=== PATIENT | male | born 1960 | race Caucasian/White ===

== ENCOUNTER 2017-03-07 11:52 | Emergency (ER) | payer BC, SELFPAY ==
[2017-03-07] MEDS ORDERED: Ketorolac Tromethamine 30 MG/ML VIAL ONE (12:28)
[2017-03-07] MEDS ORDERED: Sodium Chloride 0.9% 1,000 ML ONE (12:28)
[2017-03-07 12:37] LABS: Bacteria/HPF None Seen HPF (None Seen); Bilirubin Small (Negative); Blood, Urine Large (Negative); Clarity Clear (Clear); Glucose, Urine (Dipstick) Negative (Negative); Leukocyte Negative (Negative); Nitrite Negative (Negative); Protein, Urine (Dipstick) 100 mg/dL (Neg-Trace); RBC/HPF GREATER THAN 50-TNTC HPF (0-3); Specific Gravity, Urine 1.034 (1.002-1.036); Urobilinogen 0.2 mg/dL (0.2-1.0); WBC/HPF 0-3 HPF (0-3); pH, Urine 5.5 (5.0-9.0)
[2017-03-07 12:38] LABS: Crystals/HPF RARE CA OXALATE HPF (Negative)
[2017-03-07] MEDS ORDERED: Metoclopramide HCl 10 MG/2 ML VIAL ONE (12:38)
[2017-03-07] MEDS ORDERED: Sodium Chloride 0.9% 100 ML ONE (12:38)
[2017-03-07 12:47] LABS: #Basophils 0.1 thou/uL (0.0-0.2); #Eosinphils 0.1 thou/uL (0.0-0.7); #Lymphocytes 1.1 thou/uL (1.20-3.40); #Monocytes 0.7 thou/uL (0.11-0.59); #Neutrophils 8.5 thou/uL (1.40-6.50); %Basophils 0.6 % (0.0-1.0); %Eosinophils 0.7 % (0.0-10.0); %Lymphocytes 10.1 % (21.0-51.0); %Monocytes 6.5 % (0.0-10.0); %Neutrophils 82.2 % (42.0-75.0); Hemoglobin 17.7 g/dL (14.0-18.0); Mean Corpuscular Hemoglobin 29.8 pg (27.0-31.0); Mean Corpuscular Volume 90.5 fl (80.0-94.0); Mean Platelet Volume 8.9 fL (7.4-10.4); Platelet Count 199 thou/uL (130-400); RBC Distribution Width 11.4 % (11.5-14.5); Red Blood Cell (RBC) Count 5.92 mill/uL (4.70-6.10); White Blood Cell (WBC) Count 10.4 thou/uL (4.8-10.8)
[2017-03-07 13:01] LABS: ALT (SGPT) 27 U/L (8-55); AST (SGOT) 25 U/L (5-34); Albumin 4.3 g/dL (3.5-5.0); Alkaline Phosphatase 99 U/L (40-150); Anion Gap 16 mmol/L (10-20); BUN (Urea Nitrogen) 18 mg/dL (8.4-25.7); Bilirubin, Total 0.8 mg/dL (0.2-1.2); Calc. Creatinine Clearance 0 mL/min (70-130); Calcium 9.3 mg/dL (7.8-10.44); Carbon Dioxide 21 mmol/L (22-29); Chloride 104 mmol/L (98-107); Estimated GFR-MDRD 57; Globulin 2.9 g/dL (2.4-3.5); Glucose 106 mg/dL (70-105); Potassium 4.1 mmol/L (3.5-5.1); Protein, Total 7.2 g/dL (6.0-8.3); Sodium 137 mmol/L (136-145)
--- NOTE | 2017-03-07 13:56 | CT ---
CT ABDOMEN AND PELVIS WITHOUT CONTRAST: Multiple axial tomograms obtained through the abdomen and pelvis without IV enhancement. HISTORY: Left flank pain. FINDINGS: Liver, spleen, and pancreas unremarkable. Adrenal glands unremarkable. Mild left hydronephrosis. There is a tiny calculus in the distal left ureter measuring in the 2-3 mm range. Right urinary tract unremarkable. Bowel loops unremarkable. Appendix normal. IMPRESSION: Tiny calculus in the distal left ureter producing mild obstructive change. POS: H
== END 2017-03-07 14:05 | disposition home or self-care (01) ==
LOC: NAV ERS 11:52
DX: N13.2 Hydronephrosis with renal and ureteral calculous obstruction (principal); I10 Essential (primary) hypertension
CPT/HCPCS: 74176; 80053; 81003; 81015; 85025; 87086; 96365; 96375; J1885; J2765; J7050

== ENCOUNTER 2017-03-30 10:31 | Emergency (ER) | payer BC ==
[2017-03-30] MEDS ORDERED: Proparacaine 0.5% Opth 15 ML BOT ONE (11:04)
[2017-03-30] MEDS ORDERED: Fluorescein Opthalmic Strip ONE (11:04)
== END 2017-03-30 11:37 | disposition home or self-care (01) ==
LOC: NAV ERS 10:31
DX: H05.011 Cellulitis of right orbit (principal); H10.9 Unspecified conjunctivitis; I10 Essential (primary) hypertension; Z87.442 Personal history of urinary calculi
CPT/HCPCS: 99283